=== PATIENT | female | born 2000 | race Caucasian/White ===

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

== ENCOUNTER 2020-02-18 14:16 | Emergency (ER) | payer OTHER ==
[2020-02-18] MEDS ORDERED: Acetaminophen 500 MG Tab PO ONE ×2 (14:55→15:02)
[2020-02-18] MEDS ORDERED: Ibuprofen 400 MG Tab PO ONE ×2 (14:55→15:02)
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
[2020-02-18] MEDS ORDERED: Bupivacaine 0.5% 10 ML SDV INJECT ONE (15:02)
--- NOTE | 2020-02-18 15:33 | CR ---
Right ankle: 3 views of the right ankle were obtained. Comparison: No prior right ankle study. Ankle mortise is symmetric. No acute fracture, dislocation or other bony abnormality is seen. Impression: 1. No abnormality is appreciated on 3 view right ankle study. Diagnostic code #1 This report was dictated in MDT
--- NOTE | 2020-02-18 15:34 | CR ---
Right foot: 3 views of the right foot were obtained. Comparison: No prior foot exam. No fracture, dislocation or other bony abnormality is appreciated. Impression: 1. No abnormality is appreciated on right foot exam. Diagnostic code #1 This report was dictated in MDT
== END 2020-02-18 16:37 | disposition home or self-care (01) ==
LOC: MW.ED 14:16
DX: M79.671 Pain in right foot (principal); F17.210 Nicotine dependence, cigarettes, uncomplicated; W22.8XXA Striking against or struck by other objects, initial encounter
CPT/HCPCS: 73610-26-RT; 73610-RT; 73630-26-RT; 73630-RT; 99283-25; A9270-GY

== ENCOUNTER 2021-03-10 20:35 | Emergency (ER) | payer OTHER ==
[2021-03-10] MEDS ORDERED: Diphtheria,Pertussis(Acell),Tetanus Vaccine 0.5 ML Syringe IM ONE (20:37)
--- NOTE | 2021-03-10 21:28 | CR ---
INDICATION: Hand pain following punching mirror TECHNIQUE: Hand radiograph 3 views right COMPARISON: None FINDINGS: Bone: No acute fractures or aggressive bone lesions are identified. Joint: The carpal and metacarpal-phalangeal joints are unremarkable in appearance. The interphalangeal joints are normal in appearance. Soft tissue: There are 2 punctate densities in the soft tissues near the 5th metacarpophalangeal joint. No radiopaque foreign bodies are seen. IMPRESSIONS: 1. No acute osseous injuries or abnormalities are noted. 2. There are 2 punctate densities in the soft tissues near the 5th metacarpophalangeal joint. Correlation with physical examination is recommended to exclude foreign bodies. Dictated by Wu Gilbert MD @ 03/10/2021 9:23:45 PM Dictated by: Wu Gilbert MD @ 03/10/2021 21:27:08 (Electronically Signed)
[2021-03-10] MEDS ORDERED: Octyl 2-Cyanoacrylate 1 APPLIC TUBE ONE (21:36)
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
== END 2021-03-10 22:17 | disposition home or self-care (01) ==
LOC: MW.ED 20:35
DX: S61.421A Laceration with foreign body of right hand, initial encounter (principal); W25.XXXA Contact with sharp glass, initial encounter
CPT/HCPCS: 12001; 73130-26-RT; 73130-RT; 99283-25